=== PATIENT | female | born 1970 | race Caucasian/White ===

== ENCOUNTER 2024-01-25 00:32 | Emergency (ER) | payer BC, SELFPAY ==
[2024-01-25] VITALS (7 sets, daily range): BP systolic 123–139; BP diastolic 69–76; PULSE 62–81; RESP 14–20; TEMP 36.4; O2SAT 96–100
[2024-01-25 00:50] LABS: Basophils Percent Auto 0.5 % (0.2-1.2); Eosinophils Absolute Auto 0.1 K/mm3 (0-0.3); Eosinophils Percent Auto 1.2 % (0-4.4); Hemoglobin 14.1 g/dL (12.0-15.0); Immature Granulocyte Absolute 0.02 K/mm3 (0.00-0.031); Immature Granulocyte Percent A 0.2 % (0-0.5); Lymphocytes Absolute Auto 1.85 K/mm3 (0.9-3.2); Mean Corpuscular HGB Conc 32.8 g/dl (32-36); Mean Corpuscular Hemoglobin 29.1 pg (26-34); Mean Corpuscular Volume 88.7 fl (80-100); Monocytes Absolute Auto 0.5 K/mm3 (0.1-0.6); Monocytes Percent Auto 5.6 % (2.6-8.5); Neutrophils Absolute Auto 5.6 K/mm3 (1.3-6.7); Neutrophils Percent Auto 69.5 % (45.5-73.1); Platelet Count Result 208 k/mm3 (150-375); Red Blood Count 4.85 M/mm3 (4.2-5.4); Red Cell Distribution Width 13.4 % (11.5-14.5)
[2024-01-25 00:59] LABS: Alanine Aminotransferase 17 U/L (6-35); Albumin Level 4.9 g/dL (3.5-5.1); Alkaline Phosphatase 93 U/L (38-126); Anion Gap 7 mmol/L (4-12); Aspartate Amino Transferase 25 U/L (14-36); Bilirubin,Total 0.5 mg/dL (0.2-1.3); Blood Urea Nitrogen 17 mg/dL (7-17); Calcium 9.1 mg/dL (8.4-10.2); Carbon Dioxide 23 mmol/L (22-30); Chloride 107 mmol/L (98-107); Estimated CRCL calculation 71 ml/min; Estimated Glomerular Filt Rate > 60; Glucose 114 mg/dL (65-110); Lipase 78 U/L (23-300); Potassium 3.6 mmol/L (3.4-5.0); Sodium 137 mmol/L (137-145)
[2024-01-25] MEDS: ONDANSETRON INJ 4 MG/2 ML VIAL IV PUSH (01:57)
[2024-01-25] MEDS: LACTATED RINGERS 1,000 ML 999 ML IV CONT (01:58)
[2024-01-25] MEDS: DICYCLOMINE HCL 10 MG CAPSULE 20 MG PO (01:58)
--- NOTE | 2024-01-25 02:23 | ED.ABDPAIN ---
HPI - Abdominal Pain General Chief Complaint: Abdominal Pain Stated Complaint: Severe abd pain, N/V/D Time Seen by Provider: 01/25/24 01:32 History of Present Illness HPI narrative: patient states that a few days ago she had nausea, vomiting, diarrhea, the diarrhea resolved today but she is still having cramps. Had a similar episode about month ago that got better on its own. Had a normal colonoscopy recently. Related Data Allergies Allergy/AdvReac Type Severity Reaction Status Date / Time amoxicillin AdvReac Gastrointestinal Verified 01/25/24 00:50 Upset Review of Systems Review of Systems: All systems reviewed & are unremarkable except as noted in HPI and below Exam Narrative: EXAMINATION OF ORGAN SYSTEMS/BODY AREAS: Constitutional: Vital signs per nursing GENERAL: Appears tired and uncomfortable HEAD: Normal with no signs of head trauma. EYES: EOMI, conjunctiva normal ENT: Hearing grossly intact LUNGS: Nonlabored breathing. HEART: [Regular rate and rhythm] ABD: [Soft], [nontender to palpation] EXT: Normal range of motion SKIN: [No rashes or lesions.] NEURO: [Alert and oriented x 3. No gross focal sensory or strength deficits.] PSYCH: Normal affect Course Vital Signs Vital signs: Vital Signs Temperature 97.5 F L 01/25/24 00:44 Pulse Rate 81 01/25/24 00:44 Respiratory Rate 16 01/25/24 00:44 Blood Pressure 123/69 01/25/24 00:44 Pulse Oximetry 100 01/25/24 00:44 Oxygen Delivery Room Air 01/25/24 00:44 Temperature 97.5 F L 01/25/24 00:44 Pulse Rate 62 01/25/24 03:09 Respiratory Rate 14 01/25/24 03:09 Blood Pressure 139/76 01/25/24 03:09 Pulse Oximetry 99 01/25/24 03:09 Oxygen Delivery Room Air 01/25/24 00:44 MDM - Abdominal Pain MDM Narrative Medical decision making narrative: Electronic medical record was reviewed. Patient presented to the ED with complaint of [abdominal pain and vomiting, with diarrhea a few days ago that is now resolved]. Vitals [were within acceptable limits]. Physical exam revealed soft abdomen without any tenderness to palpation. Based on the patient's history and physical exam, my differential includes but is not limited to [gastritis, gastroenteritis, doubt appendicitis without any focal tenderness, doubt SBO with recent BM]. Also considered IBS. [IV access was established by nursing staff. Patient was given zofran, bentyl, 1L LR]. CBC, BMP, lipase, LFTs, bilirubin and alk phos were obtained. Labs were pertinent for normal labs. Discussed with patient if she would want CT imaging and since she has no tenderness or much abdominal pain at this time we did defer this. On reevaluation, the patient states that they are feeling much better. There were no witnessed episodes of vomiting in the emergency department. They are not complaining of any new abdominal pain. Repeat examination did not show any significant guarding or rebound. No new tenderness. At this time I do not feel there is any further emergent treatment to be provided. The patient was given strict return precautions, if they are to develop any worsening abdominal pain, vomiting, or blood in the vomit they are to return to the emergency department immediately. Patient verbally acknowledges understanding these directions. [The patient was informed of the above diagnostic test findings.] No further workup is necessary at this time. They will be discharged home [with prescriptions]. They were advised to follow-up with their donor services technician in 2 days. The patient feels that this is appropriate medical decision making and verbalizes an understanding of the discharge instructions. Lab Data 01/25/24 00:44 01/25/24 00:44 Labs: Lab Results 01/25/24 01/25/24 Range/Units 00:44 02:39 WBC 8.0 (4.5-10.0) K/mm3 RBC 4.85 (4.2-5.4) M/mm3 Hgb 14.1 (12.0-15.0) g/dL Hct 43.0 (37.0-47.0) % MCV 88.7 (80-100) fl MCH 29.1 (26-34)
[2024-01-25 02:51] LABS: Appearance Urine Cloudy (Clear); Bacteria Urine None Seen /hpf; Bilirubin Urine Negative (Negative); Blood Urine Negative (Negative); Color Urine Yellow (Yellow); Glucose Urine UA Negative (Negative); Ketones Urine 2+ mg/dL (Negative); Leukocyte Esterase Ur Negative LEU/UL (Negative); Nitrate Urine Negative (Negative); Non Pathogenic Casts 0-2; Protein Urine Negative (Negative); Specific Grav Ur 1.026 (1.001-1.035); Squamous Epithelial Cell Urine None Seen /hpf (Few); WBC Urine 0-5 /hpf (0-3)
[2024-01-25 03:08] LABS: Add Urine Microscopic? NO
== END 2024-01-25 03:10 | disposition home or self-care (01) ==
PROVIDERS: Emergency Provider Emergency Medicine
DX: R11.2 Nausea with vomiting, unspecified (principal); R10.9 Unspecified abdominal pain
CPT/HCPCS: 36415; 80053; 81003; 81025; 83690; 85025; 96361; 96374; 99284; A9270; J2405; J7120